=== PATIENT | male | born 1965 | race Caucasian/White ===

== ENCOUNTER 2020-02-12 09:33 | Inpatient (IN) | payer OTHER, SELFPAY ==
[2020-02-12] VITALS (21 sets, daily range): BP systolic 110–190; BP diastolic 68–130; PULSE 58–93; RESP 11–21; TEMP 36.2–36.8; O2SAT 93–99; BMI 28.9
--- NOTE | ~2020-02-12 | XR_ITS ---
EXAMINATION: XR chest 2V DATE: 02/12/2020 10:04 INDICATION: Chest pain and shortness of breath. TECHNIQUE: PA and lateral views of the chest were obtained. COMPARISON: None FINDINGS: Mild opacities in the bilateral lower lung zones. No pleural effusion or pneumothorax. The cardiomedi astinal silhouette is normal. Mild thoracic spondylosis. Right humeral bone island. Cholecystectomy c lips in right upper quadrant. IMPRESSION: 1. Mild opacities in the bilateral lower lung zones which could represent atelectasis or pneumonia. Reviewed, dictated and finalized at location A. IMPRESSION: 1. Mild opacities in the bilateral lower lung zones which could represent atele ctasis or pneumonia.
--- NOTE | ~2020-02-12 | CT_ITS ---
EXAMINATION: CTA chest abdomen pelvis DATE: 02/12/2020 10:55 INDICATION: Chest and back pain TECHNIQUE: Computed tomographic angiography (CTA) of the chest, abdomen and pelvis was performed with out and with 100 mL Omnipaque-350 intravenous contrast. Volume-rendered 3D-reconstructions of the aor ta and large arteries were constructed by the technologist on a separate workstation. Automated expos ure control and iterative reconstruction technique were employed. The dose-length product was 731 mG y-cm. COMPARISON: None. FINDINGS: Chest: Bronchial wall thickening throughout the lungs. Mild emphysema. Groundglass opacity with dependent pr edominance with scattered smooth septal line thickening at the periphery of the lung bases consistent with likely combination of atelectasis and mild pulmonary edema. No pleural effusion or pneumothorax . Borderline heart size. No pericardial effusion. Mild bilateral hilar and mediastinal lymphadenopath y which is likely reactive. Ectatic ascending thoracic aorta which measures up to 3.9 cm in maximal d iameter. Normal caliber aortic arch and descending thoracic aorta with no dissection. Abdomen/pelvis: Cholecystectomy clips the gallbladder fossa. The liver, spleen, pancreas, bilateral adrenal glands an d left kidney are normal. 1.5 cm right renal cyst. Bowels including the appendix are normal. Bladder is normal. No free intraperitoneal gas or fluid. No pathologically enlarged abdominal or pelvic lymph adenopathy. Small amount of scattered atherosclerotic calcification with no significant stenosis lily g the normal caliber abdominal aorta and bilateral iliac arteries. No dissection. Incidentally noted is a tiny accessory right renal artery. Minimal thoracic and lumbar spondylosis. IMPRESSION: 1. Borderline heart size with mild pulmonary edema. 2. Ectatic ascending thoracic aorta measuring up to 3.9 cm in maximal diameter. 3. Mild mediastinal and bilateral hilar lymphadenopathy which is likely reactive. Reviewed, dictated and finalized at location A. IMPRESSION: 1. Borderline heart size with mild pulmonary edema. 2. Ectatic ascending thoracic aorta measuring up to 3.9 cm in maximal diameter. 3. Mild mediastinal and bilateral hilar lymphadenopathy which is likely reactiv e.
--- NOTE | 2020-02-12 09:37 | ECG_ITS ---
Measurements Intervals [place] Rate: 64 P: 46 [place]: 142 QRS: 73 QRSD: 113 T: 63 QT: 397 QTc: 411 Interpretive Statements SINUS RHYTHM INTRAVENTRICULAR CONDUCTION DELAY ST ELEVATION IN INFERIOR LEADS- CONSIDER ACUTE INJURY POSTERIOR INFARCT, ACUTE BASELINE ARTIFACT- I, II, III ABNORMAL ECG Electronically Signed On 02-12-2020 11:27:02 CDT by John Byrd D.O.
[2020-02-12 09:49] LABS: Basophils Absolute Auto 0.1 K/mm3 (0.0-0.1); Basophils Percent Auto 0.8 % (0.2-1.2); Eosinophils Absolute Auto 0.2 K/mm3 (0-0.3); Eosinophils Percent Auto 1.9 % (0-4.4); Hematocrit 47.6 % (42.0-52.0); Hemoglobin 16.7 g/dL (14.0-18.0); Immature Granulocyte Absolute 0.04 K/mm3 (0.00-0.031); Immature Granulocyte Percent A 0.3 % (0-0.5); Lymphocytes Absolute Auto 2.67 K/mm3 (0.9-3.2); Lymphocytes Percent Auto 23.1 % (18.3-44.2); Mean Corpuscular HGB Conc 35.1 g/dl (32-36); Mean Corpuscular Hemoglobin 32.4 pg (26-34); Mean Corpuscular Volume 92.4 fl (80-100); Mean Platelet Volume 10.3 fl (7.4-10.4); Monocytes Absolute Auto 0.8 K/mm3 (0.1-0.6); Monocytes Percent Auto 7.1 % (2.6-8.5); Neutrophils Absolute Auto 7.7 K/mm3 (1.3-6.7); Neutrophils Percent Auto 66.8 % (45.5-73.1); Platelet Count Result 280 k/mm3 (150-375); Red Blood Count 5.15 M/mm3 (4.6-6.20); Red Cell Distribution Width 12.4 % (11.5-14.5); White Blood Count 11.5 K/mm3 (4.5-10.0)
[2020-02-12 09:59] LABS: INR 1.1; Prothrombin Time 14.1 Seconds (11.1-14.7)
[2020-02-12 10:03] LABS: Anion Gap 9 mmol/L (8-16); Blood Urea Nitrogen 13 mg/dL (9-20); Calcium 9.5 mg/dL (8.4-10.2); Carbon Dioxide 25 mmol/L (22-30); Chloride 104 mmol/L (98-107); Estimated Glomerular Filt Rate > 60; Glucose 143 mg/dL (75-110); Potassium 4.1 mmol/L (3.4-5.0); Sodium 138 mmol/L (137-145)
[2020-02-12 10:16] LABS: Troponin I 0.035 ng/mL (0.000-0.034)
[2020-02-12] MEDS: FAMOTIDINE 20 MG/2 ML VIAL IV PUSH (10:31)
[2020-02-12] MEDS: LABETALOL HCL INJ 100 MG/20 ML VIAL 20 MG IV PUSH ×2 (10:31→11:24)
[2020-02-12] MEDS: MORPHINE SULFATE (*CRX) 4 MG/ML INJ IV PUSH (10:31)
[2020-02-12] MEDS: ONDANSETRON INJ 4 MG/2 ML VIAL IV PUSH (10:32)
[2020-02-12] MEDS: PANTOPRAZOLE SODIUM IV 40 MG VIAL IV PUSH (10:32)
[2020-02-12 10:44] LABS: Alanine Aminotransferase 15 U/L (4-50); Albumin Level 4.4 g/dL (3.5-5.1); Alkaline Phosphatase 68 U/L (38-126); Aspartate Amino Transferase 20 U/L (17-59); Bilirubin,Total 0.4 mg/dL (0.2-1.3); Lipase 85 U/L (23-300)
--- NOTE | 2020-02-12 10:55 | ED.CHESTPAIN ---
HPI - Chest Pain General Chief Complaint: Chest Pain Stated Complaint: chest pain Time Seen by Provider: 02/12/20 10:02 Source: patient Mode of arrival: ambulatory Limitations: no limitations History of Present Illness HPI narrative: Patient is a 54-year-old male who presents with midsternal chest discomfort nausea and vomiting he has a sharp pain in the chest also having GI upset patient had had these symptoms a few times earlier in the week which were intermittent patient has had 3 episodes today. Patient notes possible similar occurrence in the past symptoms are worse with activity movement position patient has been unable to get comfortable patient notes when he threw up this morning he threw up his medication which is Bystolic. Patient is followed by primary care. Patient on arrival appears uncomfortable but in no distress Related Data Home Medications Medication Instructions Recorded Confirmed metoprolol succinate PO 02/12/20 nebivolol [Bystolic] mg 02/12/20 02/12/20 Allergies Allergy/AdvReac Type Severity Reaction Status Date / Time Penicillins Allergy Swelling Verified 02/12/20 09:49 CIPROFLOXACIN HCL Allergy Mild Swelling Uncoded 02/12/20 09:49 SHELLFISH Allergy Mild Swelling Uncoded 02/12/20 09:49 Review of Systems Review of Systems: All systems reviewed & are unremarkable except as noted in HPI and below PMFSH Past Medical History Medical History (Updated 02/12/20 @ 12:15 by Agnes Ron MD) Ectatic aorta ETOH abuse Hypertension Tobacco abuse Social History Social History (Updated 02/12/20 @ 11:59 by Agnes Ron MD) Social History: Has a daughter and a girlfriend. HAs had Etoh abuse but has been cutting back and taking a med for this. Gender identity (if verbalized by the patient): Male Exam Narrative: Exam Narrative: GENERAL: Ill-appearing, well-nourished, uncomfortable, and in no acute distress. HEAD: Normocephalic, atraumatic. EYES: PERRLA and EOMI. ENT: Nares clear, no rhinorrhea or epistaxis. Mucous membranes moist. NECK: Supple. No adenopathy or masses. No carotid bruits or JVD CHEST: Clear to auscultation. No respiratory distress. No wheezes rales or rhonchi HEART: Regular rate and rhythm. No murmur heard. Normal peripheral pulses. ABDOMEN: Soft, tenderness in the upper quadrants of the abdomen, nondistended EXTREMITIES: Normal range of motion. No edema. SKIN: Warm, dry, no rash. NEURO: No focal deficits. Alert and oriented x3. Cranial nerves II through XII grossly intact PSYCH: Normal mood and affect. Course Course Emergency Course: Patient being taken to the Department Mgr at this time patient's EKG concerning for ischemic changes cardiology on-call was contacted who recommended calling a STEMI patient then was seen by the heart care group physician who came down when she heard that the STEMI was called she spoke with the interventionalists and made plans to take the patient to the Department Mgr for cardiac catheterization. Patient was given antihypertensive aspirin in the emergency department as well as other medications for his symptoms CO TEACHER/PA Physician Supervision Patient with concerning findings on EKG and the blood work for ischemic heart disease nutrition therapist and interventionalists were contacted and recommended STEMI activation. Patient given medications as instructed by cardiology to include blood pressure aspirin nitro. Patient at this time with improved condition will be taken to the Department Mgr Consultations Consultation #1: Discussed case with Dr. Byrd who reviewed the EKG as requested and recommended calling a STEMI Date: 02/12/20 Time: 11:26 Consultation #2: Dr. Ron nutrition therapist in the emergency department who is in the emergency department evaluating the patient Date: 02/12/20 Time: 11:46 Vital Signs Vital signs: Vital Signs Temperature 98 F 02/12/20 09:51 Pulse Rate 60 02/12/20 09:51 Respiratory Rate 16 02/12/20 09:51 Blood Pressure 190/13
--- NOTE | 2020-02-12 11:16 | ECG_ITS ---
Measurements Intervals [place] Rate: 66 P: 54 [place]: 145 QRS: 73 QRSD: 110 T: 69 QT: 410 QTc: 430 Interpretive Statements SINUS RHYTHM WITH SINUS ARRHYTHMIA INFERIOR ST ELEVATION- CONSIDER ACUTE INJURY POSTERIOR INFARCT, ACUTE BASELINE ARTIFACT- I, III, AVR, AVL, AVF ABNORMAL ECG Electronically Signed On 02-12-2020 11:27:59 CDT by John Byrd D.O.
[2020-02-12] MEDS: SODIUM CHLORIDE 0.9% IV 500 ML 999 ML IV CONT (11:18)
[2020-02-12 11:23] LABS: Lactic Acid Reflex 1.6 mmol/L (0.7-2.1)
[2020-02-12] MEDS: ASPIRIN 81 MG CHEWABLE TABLET 324 MG PO (11:29)
[2020-02-12] MEDS: METOPROLOL TARTRATE INJ 5 MG/5 ML VIAL IV PUSH (11:43)
--- NOTE | 2020-02-12 11:45 | ECG_ITS ---
Measurements Intervals [place] Rate: 68 P: 61 [place]: 156 QRS: 80 QRSD: 114 T: 61 QT: 401 QTc: 427 Interpretive Statements SINUS RHYTHM INTRAVENTRICULAR CONDUCTION DELAY INFERIOR ST ELEVATION- CONSIDER ACUTE INJURY POSTERIOR INFARCT- ACUTE ABNORMAL ECG Electronically Signed On 02-12-2020 19:48:54 CDT by John Byrd D.O.
[2020-02-12] MEDS: NITROGLYCERIN SL 0.4 MG TABLET SUBLINGUAL ×3 (11:50→12:01)
--- NOTE | 2020-02-12 11:51 | PM.IMHP ---
H&P: HPI History of Present Illness Date/Time: 02/12/20 11:51 Chief complaint: chest pain Narrative: Ronal Ga is a 54 year old male seen in the ER for STEMI. The patient has no h/o heart diseae but started having trouble w/ intermittent SSBP/epigastric pain and heartburn since Thursday. This morning he had pizza for breakfast then started having epigastric and SSCP/heartburn which worsened and he came to the ER. Here it was thought to be GI and he was given Protonix, MSO4 and NS. His BP was quite high and he was given IV labetolol X2 and ASA X 4. He had a CT of his chest which showed an ectatic aorta (3.9 cm asc aorta) and borderline pulmonary edema. Dr Byrd called the ER w/ EKG results and interpreted it as showing a posterior MO. The pt is still uncomfortable, c/o now increased SSCP and radiation to his arms. Repeat EKg on my personal review showed subtle ST inferiorly andin V6 w/ significant worsening reciprocol ST depression anteriorly, consistent with an inferoposterior MO.. He has been given lopressor 5 mg IVP for HTN and getting TNG. The cath team has been called in. H/O HTN and smoking, no DM or HLD. Has just been started on metorpolol which he takes intermittently. Review of Systems Constitutional: Constitutional: Reports no additional constitutional complaints Eyes: Eyes: Reports no additional eye complaints ENT: Reports system reviewed and no additional complaints, except as documented Cardiovascular: Cardiovascular: Reports chest pain and Denies pedal edema Respiratory: Respiratory: Denies dyspnea Gastrointestinal: Gastrointestinal: Reports abdominal pain, Reports heartburn and Denies vomiting Genitourinary: Genitourinary: Denies hematuria Musculoskeletal: Musculoskeletal: Reports back pain (Cp now radiating to intrascapular area) Integumentary/Breasts: Skin/Breast: Denies rash Psychiatric: Psychiatric: Reports no additional psychiatric complaints [facility] Past Medical History Medical History (Updated 02/13/20 @ 09:49 by Carter Nuno MD) Ectatic aorta ETOH abuse Hypertension Tobacco abuse Family History Family History (Updated 02/12/20 @ 13:23 by Paulino Sims RN) Father Alcohol abuse Social History Social History (Updated 02/12/20 @ 11:59 by Agnes Ron MD) Social History: Has a daughter and a girlfriend. HAs had Etoh abuse but has been cutting back and taking a med for this. Smoking status: Current every day smoker Alcohol intake: former Substance use: never Gender identity (if verbalized by the patient): Male Spiritual care concerns: No Meds Home Medications and Allergies Home Medications Medication Instructions Recorded Confirmed Type metoprolol succinate 100 mg PO DAILY 02/12/20 02/12/20 History nebivolol [Bystolic] 10 mg PO DAILY 02/12/20 02/12/20 History Allergies Allergy/AdvReac Type Severity Reaction Status Date / Time ciprofloxacin Allergy Mild Swelling Verified 02/13/20 08:10 Penicillins Allergy Swelling Verified 02/12/20 09:49 SHELLFISH Allergy Mild Swelling Uncoded 02/12/20 09:49 Vital Signs Vital Signs - 24 hr 02/12/20 09:51 02/12/20 10:00 02/12/20 10:24 Temperature 98 F 98 F Pulse Rate 60 66 72 Respiratory Rate 16 18 17 Blood Pressure 190/130 H 182/129 H 190/124 H Pulse Oximetry 98 98 97 02/12/20 11:25 Temperature Pulse Rate 72 Respiratory Rate 17 Blood Pressure 181/106 H Pulse Oximetry 95 Exam Const: General: in distress and uncomfortable HENMT: Mouth: Yes moist mucous membranes Eyes: Pupils: Equal, round and reactive pupils present Neck: Neck: supple Lymphatic: lymphadenopathy not noted Cardio: Rate: regular rate Rhythm: regular rhythm Heart sounds: no murmurs Other: Intact pedal pulses GI: Inspection: non-distended GI Palp: Yes Soft to palpation and No Firmness to palpation present (GI) Other: No hepatospelomegaly Skin: General skin exam: normal color and no rashes or lesions noted Ne
--- NOTE | 2020-02-12 12:56 | WPDCARDPROC ---
Cardiac Cath Procedure Note Date of procedure:: 02/12/20 Performing physician:: Jonathon Landa MD Assessment and Plan Additional Plan AINDICATION: 1. STEMI HISTORY Patient presented with acute sever chest pain, EKG showed inf-post STEMI PROCEDURES 1. Coronary angiogram 2. LHC 3. PCI to High OM1 acute total occlusion -culprit lesion for STEMI- with one YENNI Xience Farzana 3.5 * 15 YENNI, ACCESS SITE Rt Radial SEDATION: Moderate sedation with versed 1mg and fenatnyl 150 mcg given under my supervision and continuous monitoring, start time: 12:35 and end time: 12:55 PROCEDURE DETAILS Consent obtained and time out done. Access site prepped and draped in sterile fashion. Moderate sedation given with versed and fentanyl and tolerated well, see nurses note for doses Access obtained with modified Seldinger technique with no difficulty. Coronary angiogram was recorded using XB 4.0 fro Left and JR4 catheter for rt in different angels LHC was done with JR4 catheter HEMODYNAMIC FINDINGS Aorta: 140/70 LVEDP: 18 mmHg No gradient across AV ANGIOGRAPHIC FINDINGS 1. Left main: normal, free of obstructive disease, gives LAD and LCX 2. LAD: gives small and intermediate size diagonals. LAD and diagonals are free of obstructive disease 3. LCX: gives one early large OM branch that has proximal acute total occlusion culprti lesion of STEMI, LCX continue as smaller vessel and gives small OM branches. 4. RCA: Dominant vessel gives rPDA and rPL. RCA and its branches are free of obstructive disease PCI DETAILS Pre intervention Lesion: acute total occlusion of OM1 culprit lesion of STEMI, class B, RADHA 0 Guide catheter: XB 4.0 Anticoagulation: Heparin to target ACT > 250 sec Antiplatelet therapy: ASA and Ticagrelor given Guide wire: Samurai used to cross to distal vessel Balloon dilation was done with emerge 3.0 * 12 balloon at 12 SRINIVAS Stent Xience Farzana 3.5 * 15 deployed at lesion at 18 SRINIVAS Post intervention: residual stenosis 0% and RADHA 3 flow established COMPLICATION: None Estimated blood loss: 30 ml patient tolerated procedure well, asymptomatic at end of procedure, awake, intact pulses and following commands CONCLUSION Acute total occlusion of OM1 acute total occlusion Culprit lesion of STEMI S/P Primary PCI with YENNI XIENCE Farzana 3.5 * 15 YENNI RECOMMENDATION DAPT for at leat one year TTE Statin
[2020-02-12 12:57] LABS: Activated Clotting Time 213 sec (74-137)
--- NOTE | 2020-02-12 13:03 | ECG_ITS ---
Measurements Intervals [place] Rate: 59 P: 60 [place]: 154 QRS: 97 QRSD: 100 T: 83 QT: 437 QTc: 435 Interpretive Statements SINUS BRADYCARDIA RIGHT AXIS DEVIATION BORDERLINE T WAVE ABNORMALITY- HIGH LATERAL LEADS BASELINE ARTIFACT- II, III, AVR, AVL, AVF, V4-V6 BORDERLINE ECG Electronically Signed On 02-12-2020 19:49:43 CDT by John Byrd D.O.
--- NOTE | 2020-02-12 13:23 | WPDCNINT ---
Assessment and Plan Assessment and plan (1) ST elevation (STEMI) myocardial infarction: Code(s): I21.3 - ST elevation (STEMI) myocardial infarction of unspecified site Status: Acute Assessment and Plan: cardiology has performed cardiac catheterization. A stent was placed for 100% occlusion and OM1. continue aspirin and Brilinta. Continue statin. Continue metoprolol. Continue to monitor renal parameters closely. May need to titrate blood pressure medication for better control of blood pressure if needed. Continue to monitor right radial access site for any hematoma. Cardiac rehab in the a.m.. Echo has been ordered for tomorrow morning. (2) Hypertension: Code(s): I10 - Essential (primary) hypertension Status: Acute Assessment and Plan: Continue metoprolol. He takes 100 mg extended release tablet once a day. Continue to monitor hemodynamics closely. Titrate or and further antihypertensive medication if his blood pressure is not at goal. (3) Tobacco abuse: Code(s): Z72.0 - Tobacco use Status: Acute Assessment and Plan: I have counseled him to stop smoking. (4) Ectatic aorta: Code(s): I77.819 - Aortic ectasia, unspecified site Status: Acute Assessment and Plan: No evidence of dissection. Additional Plan DVT prophylaxis with subcu heparin GI prophylaxis not indicated Full code critical care time spent 36 minutes Due to a high probability of clinically significant, life threatening deterioration, the patient required my highest level of preparedness to intervene emergently and I personally spent this critical care time directly and personally managing the patient. This critical care time included obtaining a history; examining the patient; pulse oximetry; ordering and review of studies; arranging urgent treatment with development of a management plan; evaluation of patient's response to treatment; frequent reassessment; and discussions with other providers. It was exclusive of separately billable procedures and treating other patients and teaching time. Please see Assessment and Plan section and the rest of the note for further information on patient assessment and treatment. [employer] Consult Note Consult date: 02/12/20 Time Seen: 12:33 HPI: Ronal Ga is a 54 year old male with past medical history of hypertension and significant smoking history who came into the ED with intermittent chest pain which has been going on for the last 1 week. He had 2 episodes today each lasting for about 2 hours. It is located in the retrosternal as well as epigastric area. He was evaluated the emergency department. His blood pressure was elevated and was given labetalol. A CT of the chest was performed which showed ectatic aorta. EKG was performed showed subtle inferior ST elevation as well as V6 and reciprocal ST depression anteriorly. He was taken to lab engineer and was found to have 100% occlusion of the OM1. a stent was placed. Right radial access was used. He denied have any chest pain shortness of breath nausea vomiting abdominal pain at the time of my evaluation. He was sleepy but easily arousable and has received 200 mcg of fentanyl. Review of Systems Review of Systems: Narrative: A comprehensive review of systems has been reviewed with the patient and most of the symptoms are negative except the one's mentioned above in HPI. [facility] Past Medical History Medical History (Updated 02/12/20 @ 12:15 by Agnes Ron MD) Ectatic aorta ETOH abuse Hypertension Tobacco abuse Family History Family History (Updated 02/12/20 @ 13:23 by Paulino Sims RN) Father Alcohol abuse Social History Social History (Updated 02/12/20 @ 11:59 by Agnes Ron MD) Social History: Has a daughter and a girlfriend. HAs had Etoh abuse but has been cutting back and taking a med for this. Zoe
--- NOTE | 2020-02-12 14:16 | ADMGEN ---
This patient, Ronal Ga, was admitted to Intensive Care Unit-10 [id number]. Patient/family oriented to hospital policies and general routines including ID bracelet, bed and alarms, visiting hours, pain management, procedures, bathroom and other care routines, personal items, smoking policy, room service/diet, and visiting hours. Information on how to activate the Rapid Response Team has been discussed. Patient/Family are encouraged to report perceived risks to care and to ask questions if they do not understand what they are told or what they should do.
[2020-02-12] MEDS: SODIUM CHLORIDE 0.9% IV 1,000 ML 125 ML IV CONT (14:24)
[2020-02-12 14:54] LABS: Partial Thromboplastin Time > 200.0 SECONDS (22.3-36.8)
[2020-02-12 15:41] LABS: Partial Thromboplastin Time 50.7 SECONDS (22.3-36.8)
[2020-02-12 15:55] LABS: Troponin I > 80.000 ng/mL (0.000-0.034)
[2020-02-12 18:26] LABS: Glucose Point of Care 143 (65-105)
[2020-02-12] MEDS: TICAGRELOR 90 MG TABLET PO (20:00)
[2020-02-12] MEDS: METOPROLOL TARTRATE 25 MG TABLET PO (20:00)
[2020-02-13] VITALS (14 sets, daily range): BP systolic 104–141; BP diastolic 78–93; PULSE 55–75; RESP 12–22; TEMP 36.8–37.2; O2SAT 96–99; BMI 29.5
--- NOTE | 2020-02-13 | ECHO_ITS ---
Patient Info Name: Ronal Ga Age: 54 years : 1965 Gender: Male Ht: 67 in Wt: 203 lbs BSA: 2.12 m2 HR: 59 bpm BP: 125 / 83 mmHg Heart Rhythm: Sinus Rhythm Technical Quality: Good Exam Date: 02/13/2020 7:46 AM Exam Location: [facility] Patient Status: Inpatient Admit Date: 02/12/2020 Staff Ordering Physician: Jonathon Landa MD Customer Success Intern: Mani Corrales RDCS, RT Attending Provider: Jonathon Landa MD Exam Type: CA echo doppler color flow Study Info Indications I22.8 - Subsequent ST elevation (STEMI) myocardial infarction of other sites Complete two-dimensional, color flow and Doppler transthoracic echocardiogram is performed with contrast to opacify the left ventricle and to improve the deliniation of the left ventricle endocardial borders. Strain analysis performed. Contrast/Agitated Saline Contrast/Ag. Saline: Definity Amount: 2.50 ml Administered By: Breanne Kapoor, BECCA Summary 1. Left ventricular systolic function is mildly reduced, estimated at 40-45%. 2. The posterior and lateral segments are markedly hypodynamic. 3. Left atrial chamber dimension is mildly enlarged. 4. Trivial mitral and aortic regurgitation. Left Ventricle Left ventricular chamber dimension is mildly enlarged. Left ventricular systolic function is mildly reduced, estimated at 40-45%. The left ventricular diastolic function is normal. The posterior and lateral segments are markedly hypodynamic. Right Ventricle Right ventricular chamber dimension is normal. Left Atria Left atrial chamber dimension is mildly enlarged. Right Atria Right atrial chamber dimension is normal. Aortic Valve The aortic valve is normal. There is trace aortic valve regurgitation. Pulmonic Valve The pulmonic valve is not well visualized. Mitral Valve The mitral valve has normal leaflets. There is trace mitral valve regurgitation. Tricuspid Valve The tricuspid valve leaflets are normal. Pericardium/Pleural The pericardium appears normal. Aorta The aortic root size at the sinus of Valsalva is normal. Left Ventricular Outflow Tract Name Value Normal LVOT 2D LVOT Diameter 2.0 cm LVOT Doppler LVOT Peak Gradient 4 mmHg LVOT Mean Gradient 2 mmHg LVOT VTI 22 cm LVOT VTI/AV VTI Ratio 0.7 LVOT Stroke Volume 67 ml LVOT CO 3.8 l/min LVOT CI 1.8 l/min/m2 Mitral Valve Name Value Normal MV Doppler MV Decel [place] 302 cm/s2 MV PHT 76 ms MV Area (PHT) 2.9 cm2 4.0-5.0 MV Diastolic Function ---------
[2020-02-13 04:22] LABS: Basophils Absolute Auto 0.1 K/mm3 (0.0-0.1); Basophils Percent Auto 0.5 % (0.2-1.2); Eosinophils Absolute Auto 0.1 K/mm3 (0-0.3); Eosinophils Percent Auto 1.1 % (0-4.4); Hematocrit 42.3 % (42.0-52.0); Hemoglobin 14.6 g/dL (14.0-18.0); Immature Granulocyte Absolute 0.04 K/mm3 (0.00-0.031); Immature Granulocyte Percent A 0.3 % (0-0.5); Lymphocytes Absolute Auto 2.23 K/mm3 (0.9-3.2); Mean Corpuscular HGB Conc 34.5 g/dl (32-36); Mean Corpuscular Hemoglobin 31.8 pg (26-34); Mean Corpuscular Volume 92.2 fl (80-100); Mean Platelet Volume 10.5 fl (7.4-10.4); Monocytes Percent Auto 8.8 % (2.6-8.5); Neutrophils Absolute Auto 8.2 K/mm3 (1.3-6.7); Neutrophils Percent Auto 70.3 % (45.5-73.1); Platelet Count Result 221 k/mm3 (150-375); Red Blood Count 4.59 M/mm3 (4.6-6.20); Red Cell Distribution Width 12.6 % (11.5-14.5); White Blood Count 11.7 K/mm3 (4.5-10.0)
[2020-02-13 04:35] LABS: Anion Gap 4 mmol/L (8-16); Blood Urea Nitrogen 9 mg/dL (9-20); Calcium 8.9 mg/dL (8.4-10.2); Carbon Dioxide 30 mmol/L (22-30); Chloride 104 mmol/L (98-107); Cholesterol 180 mg/dL (0-200); Estimated CRCL calculation 97 ml/min; Estimated Glomerular Filt Rate > 60; Glucose 104 mg/dL (75-110); HDL Direct 39 mg/dL; Potassium 3.6 mmol/L (3.4-5.0); Sodium 138 mmol/L (137-145); Triglycerides 90 mg/dL (<150)
[2020-02-13 04:46] LABS: LDL Cholesterol Direct 131 mg/dL
[2020-02-13 06:39] LABS: Glucose Point of Care 123 (65-105)
--- NOTE | 2020-02-13 07:40 | WPDINTPN ---
Progress Note: A&P Assessment and Plan (1) ST elevation (STEMI) myocardial infarction: Code(s): I21.3 - ST elevation (STEMI) myocardial infarction of unspecified site Status: Acute Assessment and Plan: cardiology has performed cardiac catheterization. A stent was placed for 100% occlusion and OM1. continue aspirin and Brilinta. Continue statin. Continue metoprolol. Continue to monitor renal parameters closely. May need to titrate blood pressure medication for better control of blood pressure if needed. Cardiac rehab in the a.m.. Echo has been done and report pending (2) NSVT (nonsustained ventricular tachycardia): Code(s): I47.2 - Ventricular tachycardia Status: Acute Assessment and Plan: replace low potassium check magnesium level echo pending continue metoprolol (3) Hypertension: Code(s): I10 - Essential (primary) hypertension Status: Acute Assessment and Plan: Continue metoprolol. Continue to monitor hemodynamics closely. Titrate or and further antihypertensive medication if his blood pressure is not at goal. (4) Ectatic aorta: Code(s): I77.819 - Aortic ectasia, unspecified site Status: Acute Assessment and Plan: No evidence of dissection. Additional Plan Cardiac diet DVT prophylaxis with subcu heparin GI prophylaxis not indicated Full code Transfer out of ICU today Subjective Date/time seen: 02/13/20 0740 Overnight events reviewed. Afebrile . Had couple of runs of NSVT overnight Vitals acceptable He denies any new complaints today and feels much better as compared to yesterday. His chest pain has completely resolved. Denies any shortness of breath. Review of system was positive for mild headache and chronic neck pain which is not new as per pain Patient denies fever, chest pain, shortness of breath, cough, nausea vomiting, abdominal pain, diarrhea, or constipation. 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 Right radial access with bandage Objective Data Vital Signs Vital Signs: Vital Signs - 24 hr 02/12/20 09:51 02/12/20 10:00 02/12/20 10:24 Temperature 36.6 C 36.6 C Pulse Rate 60 66 72 Pulse Rate [Left Radial] Respiratory Rate 16 18 17 Blood Pressure 190/130 H 182/129 H 190/124 H Pulse Oximetry 98 98 97 02/12/20 11:01 02/12/20 11:15 02/12/20 11:25 Temperature 36.7 C Pulse Rate 68 76 72 Pulse Rate [Left Radial] Respiratory Rate 11 L 20 17 Blood Pressure 181/106 H 179/110 H 181/106 H Pulse Oximetry 95 95 02/12/20 11:41 02/12/20 11:43 02/12/20 11:46 Temperature Pulse Rate 84 Pulse Rate [Left Radial] Respiratory Rate Blood Pressure 180/107 H 172/123 H Pulse Oximetry 02/12/20 11:48 02/12/20 11:53 02/12/20 11:57 Temperature 36.4 C L Pulse Rate 76 71 Pulse Rate [Left Radial] Respiratory Rate 17 Blood Pressure 176/125 H 164/109 H Pulse Oximetry 94 95 02/12/20 12:01 02/12/20 12:09 02/12/20 14:00 Temperature 36.2 C L Pulse Rate 74 68 60 Pulse Rate [Left Radial] Respiratory Rate 21 H 16 16 Blood Pressure 160/109 H 137/95 H 154/85 H Pulse Oximetry 93 95 99 02/12/20 14:11 1
[2020-02-13] MEDS: PERFLUTREN LIPID MICROSPHERES 1.5 ML VIAL DILUTED TO 10 ML TOTAL VOLUME IV PUSH (08:18)
[2020-02-13] MEDS: TICAGRELOR 90 MG TABLET PO ×2 (08:58→20:54)
[2020-02-13] MEDS: METOPROLOL TARTRATE 25 MG TABLET PO ×2 (08:58→20:53)
[2020-02-13] MEDS: ASPIRIN 81 MG ENTERIC TABLET PO (08:58)
[2020-02-13] MEDS: FOLIC ACID 1 MG TABLET PO (08:58)
[2020-02-13] MEDS: THIAMINE HCL 100 MG TABLET PO (08:59)
[2020-02-13] MEDS: ATORVASTATIN 40 MG TABLET 80 MG PO (08:59)
[2020-02-13] MEDS: POTASSIUM CHLORIDE 20 MEQ TABLET 40 MEQ PO (09:33)
--- NOTE | 2020-02-13 09:57 | PM.PNCARD ---
Progress Note: A&P Additional Plan acute ST-elevation ND with total occlusion of a high OM circumflex branch which was successfully addressed/treated with PCI involving a drug-eluting stent to this vessel yesterday. Patient had stuttering chest pain off and on the week leading up to this event and was therefore a somewhat late presentation. Troponin levels have risen quite high consistent with this. Patient is on appropriate medication and can be moved out of ICU. Did have some asymptomatic 3 and 4 beat nonsustained ventricular runs since emergency which is not of great concern at this time in the 1st 24 hours after this event. Porfirio Pleitez MD [facility] Subjective Date/time seen: date of service:02/13/20 09:57 Interval history: Follow-up visit in this 54-year-old patient with acute ST-elevation ND yesterday he feels comfortable today no longer having any chest pain denies shortness of breath. Patient is a heavy cigarette smoker discussed with him the importance of smoking cessation Exam Const: General: comfortable and no acute distress Eyes: Sclera: sclerae normal Pupils: Equal, round and reactive pupils present Neck: Neck: normal visual inspection and no JVD Thyroid: thyroid normal Resp: Effort & Inspection: normal respiratory effort Auscultation: clear to auscultation bilaterally Other: breath sounds diminished but otherwise clear Cardio: Jugular venous distension: no JVD Heart sounds: S1 normal heart sound present and S2 normal heart sound present Other: no murmur no gallop no rub GI: GI Palp: Yes Soft to palpation Auscultation: normal bowel sounds Extrem: General: normal to inspection Other: right groin puncture site is normal no bruit no hematoma Objective Data Vital Signs Vital Signs: Vital Signs - 24 hr 02/12/20 10:00 02/12/20 10:24 02/12/20 11:01 Temperature 36.6 C 36.7 C Pulse Rate 66 72 68 Pulse Rate [Left Radial] Respiratory Rate 18 17 11 L Blood Pressure 182/129 H 190/124 H 181/106 H Pulse Oximetry 98 97 02/12/20 11:15 02/12/20 11:25 02/12/20 11:41 Temperature Pulse Rate 76 72 Pulse Rate [Left Radial] Respiratory Rate 20 17 Blood Pressure 179/110 H 181/106 H 180/107 H Pulse Oximetry 95 95 02/12/20 11:43 02/12/20 11:46 02/12/20 11:48 Temperature Pulse Rate 84 Pulse Rate [Left Radial] Respiratory Rate Blood Pressure 172/123 H 176/125 H Pulse Oximetry 02/12/20 11:53 02/12/20 11:57 02/12/20 12:01 Temperature 36.4 C L Pulse Rate 76 71 74 Pulse Rate [Left Radial] Respiratory Rate 17 21 H Blood Pressure 164/109 H 160/109 H Pulse Oximetry 94 95 93 02/12/20 12:09 02/12/20 14:00 02/12/20 14:11 Temperature 36.2 C L Pulse Rate 68 60 Pulse Rate [Left Radial] 60 Respiratory Rate 16 16 Blood Pressure 137/95 H 154/85 H Pulse Oximetry 95 99 02/12/20 16:00 02/12/20 17:36 02/12/20 18:00 Temperature 36.6 C Pulse Rate 93 60 68 Pulse Rate [Left Radial] 58 L Respiratory Rate 18 16 Blood Pressure 110/68 156/92 H Pulse Oximetry 96 98 02/12/20 20:00 02/12/20 22:00 02/13/20 00:00 Temperature 36.8 C Pulse Rate 62 68 60 Pulse Rate [Left Radial] 58 L 60 Respiratory Rate 15 14 12 Blood Pressure 144/91 H 135/76 141/90 H Pulse Oximetry 99 97 96 02/13/20 02:00 02/13/20 04:00 02/13/20 06:00 Temperature 36.8 C Pulse Rate 61 73 60 Pulse Rate [Left Radial] 60 Respiratory Rate 17 18 12 Blood Pressure 134/85 139/93 H 125/83 Pulse Oximetry 97 97 96 02/13/20 08:00 02/13/20 08:58 Temperature 36.9 C Pulse Rate 56 L 75 Pulse Rate [Left Radial] 56 L Respiratory Rate 14 Blood Pressure 104/78 Pulse Oximetry 98 Intake/Output Intake/Output: Intake & Output 02/10/20 02/11/20 02/12/20 02/13/20 23:59 23:59 23:59 23:59 Intake Total 740 1390 Output Total 1100 1850 Balance -360 460 Meds/Results Medications: Active Medications Generic Name Dose Route Start Last Admin Trade Name
[2020-02-14] VITALS (7 sets, daily range): BP systolic 115–144; BP diastolic 71–95; PULSE 54–67; RESP 14–19; TEMP 36.6–36.9; O2SAT 93–97
[2020-02-14 00:33] LABS: Glucose Point of Care 105 (65-105)
[2020-02-14] MEDS: HYDROcodone/acetaminophen (*CRX) 5-325 MG TABLET 1 TAB PO (03:52)
[2020-02-14] MEDS: ASPIRIN 81 MG ENTERIC TABLET PO (08:57)
[2020-02-14] MEDS: ATORVASTATIN 40 MG TABLET 80 MG PO (08:57)
[2020-02-14] MEDS: METOPROLOL TARTRATE 25 MG TABLET PO (08:58)
[2020-02-14] MEDS: TICAGRELOR 90 MG TABLET PO (08:58)
[2020-02-14] MEDS: FOLIC ACID 1 MG TABLET PO (08:58)
[2020-02-14] MEDS: THIAMINE HCL 100 MG TABLET PO (08:58)
--- NOTE | 2020-02-14 12:53 | PM.DS ---
DS: Admitting Diagnosis Admitting Diagnosis Admitting Diagnosis: chest pain DS: Discharge Diagnosis Discharge Diagnosis (1) ST elevation (STEMI) myocardial infarction: Code(s): I21.3 - ST elevation (STEMI) myocardial infarction of unspecified site Status: Acute Assessment and Plan: Acute inferior posterior VA STEMI Cardiac catheterization 02/12/2020: Left main: normal, free of obstructive disease, gives LAD and LCX. LAD: gives small and intermediate size diagonals. LAD and diagonals are free of obstructive disease. LCX: gives one early large OM branch that has proximal acute total occlusion culprit lesion of STEMI, LCX continue as smaller vessel and gives small OM branches. RCA: Dominant vessel gives rPDA and rPL. RCA and its branches are free of obstructive disease . PCI to High OM1 acute total occlusion -culprit lesion for STEMI- with one YENNI Xience Farzana 3.5 X 15 YENNI. Echocardiogram 02/13/2020: Left ventricular systolic function is mildly reduced, estimated at 40-45%. The posterior and lateral segments are markedly hypodynamic. Left atrial chamber dimension is mildly enlarged. Trivial mitral and aortic regurgitation. Continue aspirin, Brilinta, atorvastatin, Metoprolol which will be converted to succinate at discharge and due to LV dysfunction low-dose lisinopril will be added. (2) Hypertension: Code(s): I10 - Essential (primary) hypertension Status: Acute Assessment and Plan: Severely hypertensive on admission. Improved with medications. (3) Tobacco abuse: Code(s): Z72.0 - Tobacco use Status: Acute Assessment and Plan: Smoking cessation was discussed. He states he has a lot of stress at home and will try. (4) Ectatic aorta: Code(s): I77.819 - Aortic ectasia, unspecified site Status: Acute Assessment and Plan: Blood pressure improvement as above. NO evidence of dissection by CT. DS: Summary Hospital Course Reason for hospitalization: Chest pain Hospital Course: 54-year-old male presented to the emergency room with chest pain. Symptoms or midsternal chest discomfort, nausea and vomiting and sharp pain. Initial troponin 0.035. His symptoms were thought to be GI. He was given Protonix, morphine and normal saline. Elevated blood pressure was treated. CT of the chest showed ectatic aorta ( 3.9 cm ascending aorta) and borderline pulmonary edema. The EKG on review by Dr Byrd interpreted a posterior VA. Cardiac catheterization lab was called in. Findings as above. Intervention to Obtuse marginal. Started on aspirin, Brilinta, Metoprolol tartrate and atorvastatin. He was monitored in the ICU. Asymptomatic 3 and 4 beat run and nonsustained ventricular tachycardia were noted overnight. activity was increased. He was ambulating in his room. On day of discharge he had no complaints of any chest discomfort, shortness of breath, lightheadedness or palpitations. He was concerned whether his medications that he has been started on would interact with his Vivitrol which he is taking for alcohol abstinence. This was checked with pharmacy. There are no interactions noted. Right wrist site was without swelling or bleeding. Fingers were warm. Brisk capillary refill. Radial and ulnar pulses were present. A Band-Aid was placed over the puncture site. He was discharged home in stable and pain-free condition. Status at Discharge Functional status at discharge: independent ambulation Overall status at discharge: patient is back to baseline Time Spent with Patient Time attestation: Total time spent providing and/or coordinating discharge services: 25 minutes in the room with exam, discussion regarding his stress, medications, smoking cessation, Vivitrol injection monthly and if this will intera
[2020-02-14 16:49] LABS: Glucose Point of Care 159 (65-105)
== END 2020-02-14 13:15 | disposition home or self-care (01) | DRG 247 ==
LOC: ANHED 10:15 → ANHICU 11:53
PROVIDERS: Emergency Medicine Emergency Medical Services; Internal Medicine; Internal Medicine Critical Care Medicine; Admitting Provider Internal Medicine Interventional Cardiology; Emergency Provider Emergency Medicine; PCP Internal Medicine; Visit Provider Internal Medicine Cardiovascular Disease
PROC: 4A023N7 Measurement of Cardiac Sampling and Pressure, Left Heart, Percutaneous Approach (ICD-10-PCS; CPT 93452; principal; 2020-02-12 12:10)
PROC: 027034Z Dilation of Coronary Artery, One Artery with Drug-eluting Intraluminal Device, Percutaneous Approach (ICD-10-PCS; 2020-02-12 12:10)
DX: I21.3 ST elevation (STEMI) myocardial infarction of unspecified site (principal); I47.2 Ventricular tachycardia; I25.10 Atherosclerotic heart disease of native coronary artery without angina pectoris; I10 Essential (primary) hypertension; I77.819 Aortic ectasia, unspecified site; F17.200 Nicotine dependence, unspecified, uncomplicated; Z79.899 Other long term (current) drug therapy
CPT/HCPCS: 36415; 71046; 71275; 74174; 80048; 80061; 80076; 83605; 83690; 83735; 84484; 85025; 85610; 85730; 86850; 86900; 86901; 93005; 93306; 93458; 96374; 96375; 99291; A9270; C1725; C1769; C1874; C1887; C8929; C9113; C9606; J0461; J1644; J2250; J2270; J2405; J3010; J7030; J7040; Q9957; Q9967